=== PATIENT | female | born 1975 | race African-American/Black ===

== ENCOUNTER → 2016-10-31 | Day surgery (SDC) | payer MEDICARE, MEDICAID ==
[~2016-10-31] MED LIST: AMPICILLIN SODIUM 1 GM in IV NORMAL SALINE 50ML 50 ML IV ONE; ASPI-482 PO; CARV12.52 PO; CARV25TA2 PO; CYCL10TA2 PO; FLUC100T4 PO; FOLI1TAB16 PO; GENTAMICIN SULFATE 80 MG in IV NORMAL SALINE 100ML 100 ML IV ONE; HYDR-2161 PO; HYDR-2672 PO; HYDR1POW19 MC; HYDR200T5 PO; HYDR25TA9 PO; INFL100V IV; IV RINGERS,LACTATED 1000ML 1,000 ML IV SCH; LIDOCAINE 2% PF Vial for OR 5 ML VIAL. ONE; METH2.5T25 PO; POTA20TA12 PO; PRED1POW2 MC; PRED5TAB PO; PREG225C PO; PREG25CA PO; PROPOFOL 40 ML IV ONE; VANC125C2 PO; WARF1POW MC; WARF2.5T71 PO; WARF5TAB7 PO
--- NOTE | 2016-10-31 09:29 | PDOC1 ---
HISTORY & PHYSICAL H&P Stella Christenesn 1975 10/18/2016 02:10 PM 07/23 [facility], [facility] OUR PATIENTS COM[facility] FIRST [address] [place] [address]. [phone] Patient: Stella Christensen Date of : 1975 Date: 10/18/2016 2:10 PM Visit Type: Office Visit This 41 year old female presents for Abdominal pain, Weight loss and Crohn's disease. History of Present Illness: 1. Abdominal pain Duration is 6 Months. Location is diffuse. The patient describes it as bloating and sharp. Context: no pattern noted. Denies aggravating factors. Denies relieving factors. 2. Weight loss The patient has lost 20lbs (9.09kgs) over a period of 6 month(s). Additional information: Patient has lost 20 lbs since last visit. Has not been able to eat much and has frequent vomiting. Patient has been depressed for a while. 3. Crohn's disease Patient has not been on any meds for Crohn's disease since March. She has not been going to her PCP either and had not seen me either. She states that she was depressed due to of her father and grandmother and had ignored her health. She had significant issue with abdominal pain and diarrhea and also periodic vomiting. Recently she also went to [facility] because she did not like [facility] and she was given IV fluids and some meds and was discharged. As per her she had not been seen by any GI MD there and had not had any CT scan or any other evaluation done. INTAKE COMMENTS: Intake Comments: Nurse Note: the pt is here today with complaints of weight loss , lack of appetite, vomiting and pain with meals. The pt has not had a Remicade infusion since March due to her health, the pt states that she was hospitalized at [facility] for 4-5 days due to severe dehydration. The pt has lost almost 20 lbs in a few months. PROBLEM LIST: Problem Description Onset Date Adhesive capsulitis of left shoulder 09/01/2015 Fever, unspecified fever cause 09/01/2015 Fibromyalgia 05/28/2009 Tendonitis and tenosynovitis of the hand 06/01/2009 Hypokalemia 09/29/2015 Crohn's disease of both small and large intestine without complication 2015 Depression 07/21/2015 Secretory diarrhea 10/13/2015 Rheumatoid arthritis 10/11/2009 Crohn's disease of small intestine without complication 09/29/2015 Diarrhea 09/29/2015 Wrist joint pain 06/01/2009 Radial styloid tenosynovitis 05/28/2009 Osteoarthritis 05/28/2009 Gastroesophageal reflux disease 05/28/2009 PAST MEDICAL/SURGICAL HISTORY (Detailed) Disease/disorder Onset Date Management Date Comments Arthrocentesis of the right knee joint Arthrocentesis of the left knee joint Arthrocentesis of the left knee joint aortic valve replacement, mechanical colonoscopy Arthrocentesis of the left knee joint colonoscopy with biopsy 05/11/2011 Injection Tendon Sheath, Ligament Arthrocentesis of the left knee joint mitral valve repair bypass tract ablation Hysterectomy Arthrocentesis of the left knee joint Arthrocentesis of the right knee joint Arthrocentesis of the left knee joint broke big toe-Lt.foot Crohn's disease Colonoscopy with biopsy 02/03/2014 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 No significant obsturction. 01/19/2011 COLONOSCOPY AND BIOPSY 05/11/2011 Abnormal Imp: Active Crohn's w\ circumferential ulcerations, bx. BX: Segments of diffusely ulcerated mucosal tissue showing marked acute inflammation involving full thickness of biopsy tissue, accompanied by small fragment of gladular epithelium, small bowel. 05/11 Colonoscopy 03/24/2015 abnormal Imp: Ileocolonic stricture. Evidence of active Crohn's disease at the anastomotic site. BX: Acute and chronic ileitis with segment of actue inflammatory exudate consistent with ulcer. 04/19/2015 Test Ordered Ordering Comments Modifier SMALL BOWEL SERIES 01/19/2011 Gastroenterology COLONOSCOPY AND BIOPSY 05/11/2011 Gastroenterology Colonoscopy 03/24/2015 Medications (Active): Started Medication Directions Instruction Stopped 04/24/2013 calcium 500 mg tablet take 2 by Oral route 03/23/2009 carvedilol 12.5 mg Tab take 1 1/2 tablet (12.5MG) by ORAL route 2 times every day with food 02/24/2016 COLESTID 1 GM TABLET TAKE 1 TABLET BY ORAL ROUTE 2 TIMES EVERY DAY Coumadin 5 mg Tab take 1 tablet (5MG) by oral route every day 10/18/2016 folic acid 1 mg tablet take 1 tablet (1MG) by ORAL route every day 07/10/2016 KLOR-CON M20 TABLET TAKE 1 TABLET BY MOUTH TWICE DAILY EVERY DAY 10/18/2016 Lyrica 225 mg capsule take 1 capsule (225MG) by oral route 2 times every day 10/18/2016 methotrexate sodium 2.5 mg tablet TAKE 7 TABLETS BY MOUTH Sunday10/18/2016 oxycodone 10 mg tablet take 1 - 2 tablet by oral route every 6 hours 10/18/2016 Plaquenil 200 mg tablet TAKE 1 TABLET BY MOUTH TWICE A DAY 08/15/2016 prednisone 5 mg tablet TAKE 1 TABLET BY MOUTH EVERY DAY 09/29/2015 Remicade 100 mg intravenous solution infuse (10MG/KG) by intravenous route every 6 weeks every 6 weeks 10/18/2016 tizanidine 4 mg tablet TAKE 1 TABLET BY MOUTH 3 TIMES A DAY NEEDED 06/28/2016 ZOFRAN 8 MG TABLET TAKE 1 TABLET BY MOUTH 3 TIMES A DAY Allergies: Ingredient Reaction Medication Name Comment NO KNOWN ALLERGIES REVIEW OF SYSTEMS System Neg/Pos Details Constitutional Negative Chills, fever, malaise and weight loss. ENMT Negative Sore throat. Eyes Negative Double vision. Respiratory Negative Dyspnea and wheezing. Cardio Negative Chest pain and irregular heartbeat/palpitations. GI Positive See HPI. GI Negative See HPI. Negative Dysuria and hematuria. Endocrine Negative Cold intolerance and heat intolerance. Psych Negative Anxiety. Integumentary Negative Hives and rash. MS Negative Joint pain. Pepe/Lymph Negative Easy bleeding and easy bruising. Allergic/Immuno Negative Animals at home and food allergies. VITAL SIGNS Time BP mm/Hg Pulse /min Resp /min Temp F Ht ft Ht in Ht cm Wt lb Wt kg BMI kg/ m2 BSA m2 O2 Sat% 2:22 PM 126/68 87 97.6 5.0 5.00 165.10 129.20 58.604 21.50 98 Time Measured by 2:22 PM Marya Larios PHYSICAL EXAM: Exam Findings Details Constitutional Normal Well developed. Eyes Normal Conjunctiva - Right: Normal, Left: Normal. Sclera - Right: Normal, Left: Normal. Nasopharynx Normal Lips/teeth/gums - Normal. Neck Exam Normal Inspection - Normal. Thyroid gland - Normal. Respiratory Normal Inspection - Normal. Auscultation - Normal. Cardiovascular Normal Regular rate and rhythm. No murmurs, gallops, or rubs. Vascular Normal Pulses - Carotids: Normal, Femoral: Normal, Dorsalis pedis: Normal. Abdomen Normal Inspection - Normal. Anterior palpation - No guarding. No abdominal tenderness. No hepatic enlargement. No splenic enlargement. No hernia. No Ascites. Skin Normal Inspection - Normal. Extremity Normal No edema. Psychiatric Normal Oriented to time, place, person, and situation. Appropriate mood and effect. The patient was checked out at 3:21 PM by Marya Larios. Assessment/Plan # Detail Type Description 1. Assessment Crohn's disease of both small and large intestine with intestinal obstruction (K50.812). Patient Plan schedule colonoscopy and EGD at [facility] CBC, ESR, CRP, CMP. Plan Orders CBC w/diff, CMP today, CRP today and Sed rate to be performed today. Further diagnostic evaluations ordered today include(s) Colonoscopy and EGD to be performed today. She is to schedule a follow-up visit with Katharine Almaraz MD upon completion of work-up 2. Assessment Weight loss (R63.4). Patient Plan await EGD /colon report 3. Assessment Non-intractable cyclical vomiting with nausea (G43.A0). Electronically signed by: Katharine Almaraz MD 10/18/2016 04:34 PM Document generated by: Katharine Almaraz 10/18/2016 04:34 PM Jeovanny Hess MD, Family Practice; Nathanael Matos MD Internal Medicine; Xavi Bonilla MD, Internal Medicine; Lety Almaraz MD Internal Medicine; Katharine Almaraz MD, Gastroenterology; Mars Starks MD, Rheumatology, [facility], Physical Medicine/Rehab Gema Denson APRN ------ 10/31/16 Patient seen and examined. No change in H&P. KATHARINE ALMARAZ MD Oct 31, 2016 09:29
--- NOTE | 2016-10-31 12:10 | PDOC4 ---
GI OP Report - Dr. Edwards Date/Time DATE: 10/31/16 TIME: 12:09 Attending Physician Ilia Edwards MD Referring Physician Indications Epigastric abdominal pain, Nausea with vomiting Pre-Op See the Anesthesia note for documentation of the administered medications Procedures Upper GI endoscopy Findings - Normal esophagus. - Normal stomach. - Normal examined duodenum. Biopsied. Plan - Discharge patient to home. - Patient has a contact number available for emergencies. The signs and symptoms of potential delayed complications were discussed with the patient. Return to normal activities tomorrow. Written discharge instructions were provided to the patient. - Resume regular diet. - Continue present medications. - Await pathology results. - Return to my office in 2 weeks. ILIA EDWARDS MD Oct 31, 2016 12:10
--- NOTE | 2016-10-31 12:19 | PDOC4 ---
GI OP Report - Dr. Edwards Date/Time DATE: 10/31/16 TIME: 12:10 Attending Physician Ilia Edwards MD Referring Physician Indications Follow-up of Crohn's disease of the small bowel and colon, Weight loss Pre-Op See the Anesthesia note for documentation of the administered medications Procedures Colonoscopy Findings - The entire examined colon is normal. - Stricture at the ileo-colonic anastomosis. - No specimens collected. - Ileal Crohn's disease. Plan - Discharge patient to home. - Patient has a contact number available for emergencies. The signs and symptoms of potential delayed complications were discussed with the patient. Return to normal activities tomorrow. Written discharge instructions were provided to the patient. - Resume regular diet. - Continue present medications. - Return to my office in 2 weeks. ILIA EDWARDS MD Oct 31, 2016 12:19
[2016-10-31 12:34] VITALS: BP 99/59
--- NOTE | 2016-11-01 15:16 | PATHOLOGY ---
PATHOLOGY REPORT * * * * * * * * FINAL DIAGNOSIS: Small bowel biopsy: - Mild active chronic enteritis without granulomas or specific features. COMMENT: Sections of the small bowel biopsy reveal segments of small bowel mucosa showing mild active chronic inflammation. There are no granulomas or specific features. There are no sprue-like changes. (JPM:; d/t: 11/01/16) REPORT ELECTRONICALLY SIGNED BY: Larry Gonzalez M.D. DATE/TIME: 11/01/2016 15:15 * * * * * * * * GROSS PATHOLOGY: Received in formalin labeled "Stella Christensen and small bowel bx," are 2 segments of agustin soft tissue measuring 0.8 x 0.2 x 0.2 cm in aggregate dimensions and measuring 0.3 and 0.5 cm in maximum dimension. The specimen is submitted entirely in cassette A1. (TTL; 10/31/2016) INITIAL CPT CODE(S): A; 97272 Professional services performed by [facility] [place] [address] Technical services performed by [facility] at [address] [place] [address] [address], [place] [address]. SPECIMEN(S) RECEIVED: A.Small bowel biopsy CLINICAL HISTORY: History of Crohn's, weight loss, abdominal pain PATIENT: STELLA CHRISTENSEN /AGE: 8 1975 (Age: 41) PATIENT #: [id number] ALT CASE #: SPECIMEN COLLECTION DATE: 10/31/2016 SPECIMEN RECEIVED DATE: 10/31/2016 [facility] - [address] [place] [address] - PHONE: [phone] * * * END OF REPORT * * *
== END | disposition home or self-care (01) ==
LOC: ENDOS 09:26
PROVIDERS: ATTEND Internal Medicine Gastroenterology
DX: K50.012 Crohn's disease of small intestine with intestinal obstruction (principal); K50.812 Crohn's disease of both small and large intestine with intestinal obstruction; I25.10 Atherosclerotic heart disease of native coronary artery without angina pectoris; I10 Essential (primary) hypertension; Z90.710 Acquired absence of both cervix and uterus; Z72.0 Tobacco use
CPT/HCPCS: 43239; 45378; J1580; J2704; 88305

== ENCOUNTER → 2017-01-16 | Outpatient (CLI) | payer MEDICARE, MEDICAID ==
[2016-10-31 12:34] VITALS: BP 99/59
[~2017-01-16] MED LIST changes: -AMPICILLIN SODIUM 1 GM in IV NORMAL SALINE 50ML 50 ML IV ONE; -GENTAMICIN SULFATE 80 MG in IV NORMAL SALINE 100ML 100 ML IV ONE; -HYDR-2672 PO; +HYDR-2766 PO; -IV RINGERS,LACTATED 1000ML 1,000 ML IV SCH; -LIDOCAINE 2% PF Vial for OR 5 ML VIAL. ONE; -PROPOFOL 40 ML IV ONE
--- NOTE | 2017-01-16 15:02 | KCIC ---
MR of the right knee Indication: Right knee pain chronically. Swelling. Technique: The standard multiplanar sequences are obtained. Findings: Medial meniscus:Intact. Lateral meniscus: Intact. Anterior cruciate ligament: Intact Posterior cruciate ligament: Intact Medial collateral ligament: Mild proximal scarring. Iliotibial band: Intact. Posterolateral structures: Fibular collateral ligament, biceps tendon and popliteus tendon are intact. Extensor mechanism: Minimal distal patellar tendinosis. Fluid: Small joint effusion. No significant Magana's cyst. Articular cartilage -patellofemoral joint:Intact -medial compartment: No acute defect of cartilage. -lateral compartment: No acute cartilage defect. Bones: No significant lesion or acute fracture. Soft tissue: Mild edema, particularly at the anterior knee. Impression: 1. Minimal distal patellar tendinosis. 2. No meniscal tear or other internal derangement. Electronically signed by: Nathanael Sotne MD (01/16/2017 2:58 PM)
== END | disposition home or self-care (01) ==
LOC: KCIC MRI 13:39
PROVIDERS: ATTEND Internal Medicine Rheumatology
DX: M25.561 Pain in right knee (principal); M25.461 Effusion, right knee
CPT/HCPCS: 73721

== ENCOUNTER → 2017-10-09 | Day surgery (SDC) | payer MEDICARE, MEDICAID ==
[~2017-10-09] MED LIST changes: +AMPICILLIN SODIUM 2 GM in IV NORMAL SALINE 100ML 100 ML IV; -ASPI-482 PO; -CARV12.52 PO; -CARV25TA2 PO; -CYCL10TA2 PO; -FLUC100T4 PO; -FOLI1TAB16 PO; +HEPARIN PF 500 UNIT/5 ML DISP.SYRIN. IV; -HYDR-2161 PO; -HYDR-2766 PO; -HYDR1POW19 MC; -HYDR200T5 PO; -HYDR25TA9 PO; -INFL100V IV; +LIDOCAINE 1% PF 2 ML VIAL. ID; -METH2.5T25 PO; +MORPHINE SULFATE 4 MG/ML DISP.SYRIN. IV; +ONDANSETRON PF 4 MG/2 ML VIAL. IV; -POTA20TA12 PO; -PRED1POW2 MC; -PRED5TAB PO; -PREG225C PO; -PREG25CA PO; +PROCHLORPERAZINE 10 MG/2 ML VIAL. IV; +PROPOFOL 20 ML IV; -VANC125C2 PO; -WARF1POW MC; -WARF2.5T71 PO; -WARF5TAB7 PO; +fentaNYL PF VIAL 100 MCG/2 ML VIAL IV
[2017-10-09] MEDS: IV RINGERS,LACTATED 1000ML 1,000 ML IV (09:50)
[2017-10-09] MEDS: GENTAMICIN SULFATE IV (10:00)
[2017-10-09] MEDS: DEXTROSE 5% IV (10:00)
[2017-10-09] MEDS: AMPICILLIN SODIUM IV Push 2 GM VIAL. IVP (10:30)
[2017-10-09] MEDS: HEPARIN PF 500 UNIT/5 ML DISP.SYRIN. IV (11:18)
== END | disposition home or self-care (01) ==
LOC: ENDOS 09:03
DX: K56.699 Other intestinal obstruction unspecified as to partial versus complete obstruction (principal); K28.9 Gastrojejunal ulcer, unspecified as acute or chronic, without hemorrhage or perforation; I25.10 Atherosclerotic heart disease of native coronary artery without angina pectoris; I10 Essential (primary) hypertension; K50.90 Crohn's disease, unspecified, without complications; Z90.710 Acquired absence of both cervix and uterus; F41.9 Anxiety disorder, unspecified; F32.9 Major depressive disorder, single episode, unspecified; F17.210 Nicotine dependence, cigarettes, uncomplicated; D64.9 Anemia, unspecified
CPT/HCPCS: 45386; J0290; J1580; J2704

== ENCOUNTER → 2018-07-01 | Outpatient (CLI) | payer MEDICARE, MEDICAID ==
[2017-10-09 11:20] VITALS: BP 114/64
[~2018-07-01] MED LIST changes: -AMPICILLIN SODIUM 2 GM in IV NORMAL SALINE 100ML 100 ML IV; +ASPI-482 PO; +CARV12.511 PO; +CARV25TA2 PO; +CYCL10TA2 PO; +FLUC100T4 PO; +FOLI1TAB16 PO; -HEPARIN PF 500 UNIT/5 ML DISP.SYRIN. IV; +HYDR-2145 PO; +HYDR-2161 PO; +HYDR-2769 PO; +HYDR1POW19 MC; +HYDR200T5 PO; +INFL100V IV; +IOHEXOL 240 MG/ML 50ML VIAL. PO ONE; +IOHEXOL 300 MG/ML 100ML VIAL. IV ONE; -LIDOCAINE 1% PF 2 ML VIAL. ID; +METH2.5T25 PO; +METO25TA4 PO; -MORPHINE SULFATE 4 MG/ML DISP.SYRIN. IV; -ONDANSETRON PF 4 MG/2 ML VIAL. IV; +POTA20TA12 PO; +PRED1POW2 MC; +PRED5TAB PO; +PREG225C PO; +PREG25CA PO; -PROCHLORPERAZINE 10 MG/2 ML VIAL. IV; -PROPOFOL 20 ML IV; +VANC125C2 PO; +WARF-31 PO; +WARF1POW MC; +WARF2.5T71 PO; -fentaNYL PF VIAL 100 MCG/2 ML VIAL IV
--- NOTE | 2018-07-01 13:59 | KCIC ---
CT ABD PELV W/ORAL IV CONTRAST Indication: Crohn's disease. Chronic pain. Stomach surgery. Partial hysterectomy. Exposure: One or more of the following individualized dose reduction techniques were utilized for this examination: 1. Automated exposure control 2. Adjustment of the mA and/or kV according to patient size 3. Use of iterative reconstruction technique. Comparison: None are available. Contrast: Intravenous contrast was given. Oral contrast was given. FINDINGS: Lower thorax: Heart size is enlarged. Liver: Several small subcentimeter hypodense lesions are too small to characterize, but would most commonly be benign, such as cysts, unless the patient has risk factors such as a primary malignancy. Spleen: Unremarkable Pancreas: Unremarkable Adrenals: No evidence of mass Kidneys: Small hypodense lesion upper pole left kidney, measures about 7 mm, too small to characterize but would most commonly represent a cyst. Urinary tracts: No hydronephrosis. Gallbladder: Contracted, no evidence of calcified stone Lymph nodes: No significant enlargement Vessels: Mildly calcified. No evidence of aneurysm or dissection. GI tract: Mild retained stool. There are surgical changes identified at the right colon and at the large and small bowel junction or anastomosis. There is wall thickening of the distal small bowel presumably inflammatory or due to ileitis. Mild wall thickening of the adjacent proximal colon. Mild distention of small bowel. Appendix is not clearly visualized. Reproductive organs:No evidence of mass. Urinary bladder: Mild wall thickening. Peritoneum: No evidence of pneumoperitoneum. No free fluid. Abdominal wall: Small fat-containing anterior abdominal wall hernia, at the midline. Spine: Vertebral body height and alignment are intact. Bones: No destructive process identified. External Soft Tissue: No acute findings. IMPRESSION: 1. Wall thickening of the distal small bowel as well as the proximal small bowel, most compatible with inflammatory etiology as can be seen with Crohn's disease. Mild distention of the proximal small bowel loops compatible with ileus, but early or partial obstruction is possible. 2. Heart size is enlarged. 3. Small hypodense lesions of the liver and kidneys too small to characterize, would commonly be benign. 4. Urinary bladder wall thickening, correlate for cystitis. Electronically signed by: Nathanael Stone MD (07/01/2018 1:55 PM) [facility]
== END | disposition home or self-care (01) ==
LOC: KCIC CT 10:05
PROVIDERS: ATTEND Internal Medicine Gastroenterology
DX: K76.89 Other specified diseases of liver (principal); N28.89 Other specified disorders of kidney and ureter; K43.9 Ventral hernia without obstruction or gangrene; I11.9 Hypertensive heart disease without heart failure; Z79.01 Long term (current) use of anticoagulants; Z87.891 Personal history of nicotine dependence
CPT/HCPCS: 74177; Q9966; Q9967